=== PATIENT | male | born 1940 | race Caucasian/White ===

== ENCOUNTER 2021-07-11 16:38 | Inpatient (IN) | payer MEDICARE ==
[2021-07-11 20:00] VITALS: BP 138/78
--- NOTE | 2021-07-11 20:30 | NUR ---
Patient arrived in the unit via ambulance from [facility]. [facility] with minimal assist. AAOx 4. calm, denies any pain/discomforts, in no apparent distress. Routine admission care done. Plan of care initiated.
[2021-07-11] MEDS: REMEDY ESSENTIAL ZINC PASTE 113 GM TOP SCH (21:32)
[2021-07-11] MEDS ORDERED: ATOR40TA PO (21:57)
[2021-07-11] MEDS ORDERED: ANAS1TAB50 PO (21:57)
[2021-07-11] MEDS ORDERED: CALC-764 PO (21:57)
[2021-07-11] MEDS ORDERED: ASPI81TA31 PO (21:57)
[2021-07-11] MEDS ORDERED: BUPR-53 PO (21:57)
[2021-07-11] MEDS ORDERED: AMLO-212 PO (21:57)
[2021-07-11] MEDS ORDERED: OMEP40CA21 PO (22:09)
[2021-07-11] MEDS ORDERED: GABA600T12 PO (22:09)
[2021-07-11] MEDS ORDERED: LOSA25TA27 PO (22:09)
[2021-07-11] MEDS ORDERED: CYAN10006 IM (22:09)
[2021-07-11] MEDS ORDERED: GABA-532 PO (22:09)
[2021-07-11] MEDS ORDERED: ANASTROZOLE 1 MG TABLET PO SCH (23:45)
[2021-07-12 04:00] VITALS: BP 141/70
[2021-07-12] MEDS: PANTOPRAZOLE SODIUM 40 MG TABLET.DR PO SCH (06:36)
[2021-07-12 07:39] VITALS: BP 137/83
[2021-07-12] MEDS: ASPIRIN 81 MG TAB.CHEW PO SCH (08:39)
[2021-07-12] MEDS: LOSARTAN POTASSIUM 25 MG TABLET PO SCH (08:43)
[2021-07-12] MEDS: REMEDY ESSENTIAL ZINC PASTE 113 GM TOP SCH ×2 (08:44→21:01)
[2021-07-12] MEDS: buPROPion XL 150 MG TAB.SR.24H PO SCH (08:44)
[2021-07-12] MEDS: CALCIUM CARB/VITAMIN D 500MG-200UNITS TABLET PO SCH (08:44)
[2021-07-12] MEDS ORDERED: AMLODIPINE 5 MG TABLET PO SCH (09:00)
[2021-07-12 15:07] VITALS: BP 118/76
--- NOTE | 2021-07-12 18:06 | NUR ---
PT remain AAOx 4. calm, pleasant during the shift, denies any pain/discomforts up with PT ambulating, in no apparent distress. safety measures in place bed in low position , call light and all need it items within reach care done.
[2021-07-12 20:00] VITALS: BP 123/78
[2021-07-12] MEDS: ATORVASTATIN 40 MG TABLET PO SCH (20:58)
[2021-07-12] MEDS ORDERED: GABAPENTIN 300 MG CAPSULE PO SCH (21:00)
[2021-07-12] MEDS ORDERED: GABAPENTIN 100 MG CAPSULE PO SCH (21:00)
[2021-07-12] MEDS: ZOLPIDEM 5 MG TABLET PO PRN (23:14)
[2021-07-13 04:00] VITALS: BP 130/72
[2021-07-13] MEDS: PANTOPRAZOLE SODIUM 40 MG TABLET.DR PO SCH (06:16)
[2021-07-13 07:33] VITALS: BP 135/86
[2021-07-13] MEDS: CALCIUM CARB/VITAMIN D 500MG-200UNITS TABLET PO SCH (09:03)
[2021-07-13] MEDS: LOSARTAN POTASSIUM 25 MG TABLET PO SCH (09:03)
[2021-07-13] MEDS: ASPIRIN 81 MG TAB.CHEW PO SCH (09:03)
[2021-07-13] MEDS: REMEDY ESSENTIAL ZINC PASTE 113 GM TOP SCH ×2 (09:04→20:57)
[2021-07-13] MEDS: buPROPion XL 150 MG TAB.SR.24H PO SCH (09:04)
--- NOTE | 2021-07-13 10:00 | NUR ---
Received patient resting in bed. AAO x4 calmed at RA , respirations even and unlabored . Seen by PT and OT had a shower today Tolerated well. UP ambulating with FWW All needs attended. Will continue to monitor patient. No complaints of pain during therapy. safety measures in place bed in low position call light and all most needed items at reach
[2021-07-13 15:28] VITALS: BP 112/85
--- NOTE | 2021-07-13 19:30 | NUR ---
Received patient on bed, alert no shortness of breath noted. No complaint of pain noted.
[2021-07-13 20:00] VITALS: BP 118/71
[2021-07-13] MEDS: AMLODIPINE 5 MG TABLET PO SCH (20:57)
[2021-07-13] MEDS: ATORVASTATIN 40 MG TABLET PO SCH (20:57)
[2021-07-13] MEDS: ZOLPIDEM 5 MG TABLET PO PRN (21:02)
--- NOTE | 2021-07-13 21:02 | NUR ---
requested for regan for insomnia, given. Patient asleep after 1 hr and 30 minutes of administration.
[2021-07-14 04:00] VITALS: BP 140/68
[2021-07-14] MEDS: PANTOPRAZOLE SODIUM 40 MG TABLET.DR PO SCH (05:52)
--- NOTE | 2021-07-14 06:32 | NUR ---
Patient slept well, able to use the urinal when voiding, Left on bed in fair condition.
[2021-07-14 08:00] VITALS: BP 150/85
[2021-07-14] MEDS: ASPIRIN 81 MG TAB.CHEW PO SCH (08:43)
[2021-07-14] MEDS: buPROPion XL 150 MG TAB.SR.24H PO SCH (08:43)
[2021-07-14] MEDS: LOSARTAN POTASSIUM 25 MG TABLET PO SCH (08:44)
[2021-07-14] MEDS: CALCIUM CARB/VITAMIN D 500MG-200UNITS TABLET PO SCH (08:44)
[2021-07-14] MEDS: REMEDY ESSENTIAL ZINC PASTE 113 GM TOP SCH ×2 (08:45→20:57)
--- NOTE | 2021-07-14 09:00 | NUR ---
Received patient sitting in bed. AAO x4 calmed at RA 02 sat 97% , respirations even and unlabored . UP with PT ambulating with FWW All needs attended. Will continue to monitor patient. No complaints of pain during therapy. safety measures in place bed in low position call light and all most needed items at reach
--- NOTE | 2021-07-14 15:45 | NUR ---
INDIVIDUALIZED PLAN OF CARE
[2021-07-14 16:28] VITALS: BP 115/71
[2021-07-14 20:15] VITALS: BP 133/79
[2021-07-14] MEDS: ATORVASTATIN 40 MG TABLET PO SCH (20:56)
[2021-07-14] MEDS: ZOLPIDEM 5 MG TABLET PO PRN (20:57)
[2021-07-14] MEDS: AMLODIPINE 5 MG TABLET PO SCH (20:57)
[2021-07-15 04:18] VITALS: BP 123/58
[2021-07-15] MEDS: PANTOPRAZOLE SODIUM 40 MG TABLET.DR PO SCH (06:22)
[2021-07-15] MEDS: CALCIUM CARB/VITAMIN D 500MG-200UNITS TABLET PO SCH (09:16)
[2021-07-15] MEDS: ASPIRIN 81 MG TAB.CHEW PO SCH (09:16)
[2021-07-15] MEDS: buPROPion XL 150 MG TAB.SR.24H PO SCH (09:16)
[2021-07-15] MEDS: LOSARTAN POTASSIUM 25 MG TABLET PO SCH (09:23)
[2021-07-15] MEDS: REMEDY ESSENTIAL ZINC PASTE 113 GM TOP SCH ×2 (09:24→20:02)
[2021-07-15 09:40] VITALS: BP 146/84
[2021-07-15 16:25] VITALS: BP 107/65
[2021-07-15] MEDS: ATORVASTATIN 40 MG TABLET PO SCH (20:01)
[2021-07-15] MEDS: AMLODIPINE 5 MG TABLET PO SCH (20:01)
[2021-07-15] MEDS: ZOLPIDEM 5 MG TABLET PO PRN (20:07)
[2021-07-15 20:34] VITALS: BP 123/67
[2021-07-16 04:49] VITALS: BP 116/52
[2021-07-16] MEDS: PANTOPRAZOLE SODIUM 40 MG TABLET.DR PO SCH (06:29)
[2021-07-16 08:00] VITALS: BP 129/77
[2021-07-16] MEDS: ASPIRIN 81 MG TAB.CHEW PO SCH (08:29)
[2021-07-16] MEDS: CALCIUM CARB/VITAMIN D 500MG-200UNITS TABLET PO SCH (08:29)
[2021-07-16] MEDS: buPROPion XL 150 MG TAB.SR.24H PO SCH (08:30)
[2021-07-16] MEDS: LOSARTAN POTASSIUM 25 MG TABLET PO SCH (08:30)
[2021-07-16] MEDS: REMEDY ESSENTIAL ZINC PASTE 113 GM TOP SCH ×2 (08:30→20:27)
[2021-07-16 16:00] VITALS: BP 111/65
--- NOTE | 2021-07-16 18:55 | NUR ---
The patient remained stable during the shift. Denies discomfort. no distress identified. all due meds given. all needs attended. Kept call light within reach. Safety measures maintained. no concerns identified. will endorse to the next shift for continuity of care.
[2021-07-16 20:15] VITALS: BP 131/59
[2021-07-16] MEDS: ATORVASTATIN 40 MG TABLET PO SCH (20:26)
[2021-07-16] MEDS: AMLODIPINE 5 MG TABLET PO SCH (20:26)
[2021-07-16] MEDS: ZOLPIDEM 5 MG TABLET PO PRN (20:27)
[2021-07-17 04:18] VITALS: BP 148/87
[2021-07-17] MEDS: PANTOPRAZOLE SODIUM 40 MG TABLET.DR PO SCH (06:14)
[2021-07-17 08:00] VITALS: BP 149/87
[2021-07-17] MEDS: ASPIRIN 81 MG TAB.CHEW PO SCH (08:26)
[2021-07-17] MEDS: buPROPion XL 150 MG TAB.SR.24H PO SCH (08:26)
[2021-07-17] MEDS: LOSARTAN POTASSIUM 25 MG TABLET PO SCH (08:27)
[2021-07-17] MEDS: CALCIUM CARB/VITAMIN D 500MG-200UNITS TABLET PO SCH (08:27)
[2021-07-17] MEDS: REMEDY ESSENTIAL ZINC PASTE 113 GM TOP SCH ×2 (08:28→20:18)
[2021-07-17 16:00] VITALS: BP 112/76
--- NOTE | 2021-07-17 18:26 | NUR ---
The patient remained stable. no distress identified. No pain noted. Denies discomfort. all due meds given. all needs attended. Kept call light within reach. Safety measures maintained. no concerns noted. will endorse to the next shift for continuity of care.
[2021-07-17 20:12] VITALS: BP 114/66
[2021-07-17] MEDS: ATORVASTATIN 40 MG TABLET PO SCH (20:18)
[2021-07-17] MEDS: AMLODIPINE 5 MG TABLET PO SCH (20:18)
[2021-07-18 04:00] VITALS: BP 121/59
[2021-07-18] MEDS: PANTOPRAZOLE SODIUM 40 MG TABLET.DR PO SCH (06:21)
[2021-07-18 06:45] LABS: HEMATOCRIT 42.9 % (36.7-47.1); MEAN CORPUSCULAR HEMOGLOBIN 31.6 uug (23.8-33.4); MEAN CORPUSCULAR VOLUME 91.4 fL (73.0-96.2); PLATELET COUNT (AUTO) 145 K/uL (152-348)
[2021-07-18 07:56] LABS: CREATININE 0.7 mg/dL (0.6-1.3); MAGNESIUM 2.3 mg/dL (1.8-2.4); PHOSPHOROUS 4.2 mg/dL (2.5-4.9); POTASSIUM 4.1 mmol/L (3.5-5.1); TOTAL PROTEIN, SERUM 6.8 g/dL (6.4-8.2)
[2021-07-18 08:00] VITALS: BP 152/85
[2021-07-18 08:19] LABS: THYROID STIMULATING HORMONE 1.641 mIU/mL (0.358-3.740)
[2021-07-18] MEDS: ASPIRIN 81 MG TAB.CHEW PO SCH (08:25)
[2021-07-18] MEDS: LOSARTAN POTASSIUM 25 MG TABLET PO SCH (08:25)
[2021-07-18] MEDS: REMEDY ESSENTIAL ZINC PASTE 113 GM TOP SCH ×2 (08:26→21:22)
[2021-07-18] MEDS: buPROPion XL 150 MG TAB.SR.24H PO SCH (08:26)
[2021-07-18] MEDS: CALCIUM CARB/VITAMIN D 500MG-200UNITS TABLET PO SCH (08:26)
[2021-07-18] MEDS ORDERED: ACETAMINOPHEN 325 MG TABLET PO PRN (09:30)
--- NOTE | 2021-07-18 15:16 | NUR ---
INTERDISCIPLINARY TEAM CONFERENCE
[2021-07-18 16:27] VITALS: BP 139/72
--- NOTE | 2021-07-18 18:25 | NUR ---
Patient remained stable. Frequent visual checks done. safety measures maintained. all due meds given. all needs attended. kept call light within reach. no other concern identified. will endorse to the next shift for continuity of care.
--- NOTE | 2021-07-18 19:00 | NUR ---
Received patient on bed, alert, no shortness of breath noted,. No complaint of pain.
[2021-07-18 20:00] VITALS: BP 110/57
[2021-07-18] MEDS: ATORVASTATIN 40 MG TABLET PO SCH (21:20)
[2021-07-18] MEDS: ZOLPIDEM 5 MG TABLET PO PRN (21:21)
[2021-07-18] MEDS: AMLODIPINE 5 MG TABLET PO SCH (21:22)
[2021-07-19 04:32] VITALS: BP 126/69
[2021-07-19] MEDS: PANTOPRAZOLE SODIUM 40 MG TABLET.DR PO SCH (06:38)
--- NOTE | 2021-07-19 06:44 | NUR ---
Patient slept well, no complaint of pain or discomfort. For MRI abdomen and pelvis today with consent attached to chart. For continuity of care.
[2021-07-19 08:00] VITALS: BP 125/77
[2021-07-19] MEDS: CALCIUM CARB/VITAMIN D 500MG-200UNITS TABLET PO SCH (08:37)
[2021-07-19] MEDS: buPROPion XL 150 MG TAB.SR.24H PO SCH (08:38)
[2021-07-19] MEDS: ASPIRIN 81 MG TAB.CHEW PO SCH (08:40)
[2021-07-19] MEDS: REMEDY ESSENTIAL ZINC PASTE 113 GM TOP SCH ×2 (08:40→20:43)
[2021-07-19] MEDS: LOSARTAN POTASSIUM 25 MG TABLET PO SCH (08:40)
[2021-07-19 16:00] VITALS: BP 120/70
[2021-07-19 20:11] VITALS: BP 143/80
[2021-07-19 20:30] VITALS: BP 143/80
[2021-07-19] MEDS: ATORVASTATIN 40 MG TABLET PO SCH (20:42)
[2021-07-19] MEDS: AMLODIPINE 5 MG TABLET PO SCH (20:43)
[2021-07-19] MEDS: ZOLPIDEM 5 MG TABLET PO PRN (20:49)
[2021-07-20 04:00] VITALS: BP 108/58
[2021-07-20] MEDS: PANTOPRAZOLE SODIUM 40 MG TABLET.DR PO SCH (06:04)
--- NOTE | 2021-07-20 07:10 | NUR ---
No acute changes, slept throughout the night. All needs attended. Will endorsed to next shift.
[2021-07-20 07:48] VITALS: BP 133/75
[2021-07-20] MEDS: buPROPion XL 150 MG TAB.SR.24H PO SCH (09:32)
[2021-07-20] MEDS: ASPIRIN 81 MG TAB.CHEW PO SCH (09:32)
[2021-07-20] MEDS: REMEDY ESSENTIAL ZINC PASTE 113 GM TOP SCH (09:32)
[2021-07-20] MEDS: CALCIUM CARB/VITAMIN D 500MG-200UNITS TABLET PO SCH (09:32)
[2021-07-20] MEDS: LOSARTAN POTASSIUM 25 MG TABLET PO SCH (09:32)
[2021-07-20 15:49] VITALS: BP 128/77
== END 2021-07-20 14:00 | disposition home health service (06) | DRG 948 ==
PROVIDERS: ADMIT Physical Medicine & Rehabilitation Pain Medicine; ATTEND Physical Medicine & Rehabilitation Pain Medicine
DX: R53.1 Weakness (principal); K50.90 Crohn's disease, unspecified, without complications; I69.354 Hemiplegia and hemiparesis following cerebral infarction affecting left non-dominant side; E78.5 Hyperlipidemia, unspecified; G90.8 Other disorders of autonomic nervous system; I10 Essential (primary) hypertension; I25.10 Atherosclerotic heart disease of native coronary artery without angina pectoris; I25.2 Old myocardial infarction; Z95.5 Presence of coronary angioplasty implant and graft; K21.9 Gastro-esophageal reflux disease without esophagitis; I69.398 Other sequelae of cerebral infarction; H53.47 Heteronymous bilateral field defects; N40.0 Benign prostatic hyperplasia without lower urinary tract symptoms; Z88.0 Allergy status to penicillin; R29.6 Repeated falls; Z91.81 History of falling; Z85.828 Personal history of other malignant neoplasm of skin; L80 Vitiligo; S40.012D Contusion of left shoulder, subsequent encounter; W19.XXXD Unspecified fall, subsequent encounter
CPT/HCPCS: 36415; 83735; 84100; 84443; 85025; 97161; 97535-GO-CO; A4663

== ENCOUNTER 2022-08-20 14:45 | Inpatient (IN) | payer MEDICARE ==
[~2022-08-20] VITALS: Ht 182.9 cm; Wt 78.0 kg
[~2022-08-20 14:45] MED LIST: AMLO-212 PO; ASPI81TA31 PO; ATOR40TA PO; BUPR-53 PO; CALC-764 PO; CYAN10006 IM; LOSA25TA27 PO; OMEP40CA21 PO
[2022-08-20] MEDS ORDERED: IV NORMAL SALINE 1000 ML BAG IV ONE (15:15)
[2022-08-20 15:41] LABS: HEMATOCRIT 42.5 % (36.7-47.1); MEAN CORPUSCULAR HEMOGLOBIN 30.2 uug (23.8-33.4); MEAN CORPUSCULAR VOLUME 88.9 fL (73.0-96.2); PLATELET COUNT (AUTO) 189 K/uL (152-348)
[2022-08-20 15:42] LABS: *CLARITY,URINE CLEAR (CLEAR); *COLOR,URINE YELLOW (YELLOW); PH,URINE 5.5 (5.0-8.0)
[2022-08-20 15:43] LABS: UGLUCOSE NEGATIVE (NEGATIVE)
[2022-08-20 15:45] LABS: *BLOOD, URINE TRACE (NEGATIVE)
[2022-08-20 15:46] LABS: *BILIRUBIN,URIN NEGATIVE (NEGATIVE); *KETONES,URINE NEGATIVE (NEGATIVE); *UROBILINOGEN,URINE 0.2 E.U./dl (NORMAL)
[2022-08-20 15:47] LABS: LEUKOCYTE ESTERASE ,URINE NEGATIVE (NEGATIVE); NITRITE, URINE NEGATIVE (NEGATIVE)
[2022-08-20 16:21] LABS: CARBON DIOXIDE 25 mmol/L (21-32); CHLORIDE 104 mmol/L (98-107); CREATININE 0.8 mg/dL (0.6-1.3); GLUCOSE 112 mg/dL (74-106); POTASSIUM 3.9 mmol/L (3.5-5.1); UREA NITROGEN, BLOOD 23 mg/dL (7-18)
[2022-08-20 16:29] LABS: WBC,URINE 0-3 /HPF (0-3)
[2022-08-20 16:30] LABS: ALANINE AMINOTRANSFERASE 36 U/L (16-63); ALKALINE PHOSPHATASE 54 U/L (50-136); ASPARTATE AMINOTRANSFERASE 22 U/L (15-37); BILIRUBIN,DIRECT 0.2 mg/dL (0.0-0.2); BILIRUBIN,TOTAL 0.7 mg/dL (0.2-1.0)
[2022-08-20 16:31] LABS: THYROID STIMULATING HORMONE 1.014 mIU/mL (0.358-3.740)
[2022-08-20] MEDS ORDERED: DOCU-265 PO (16:33)
[2022-08-20] MEDS ORDERED: ACET-73 PO (16:33)
[2022-08-20] MEDS ORDERED: FAMO-132 PO (16:33)
[2022-08-20] MEDS ORDERED: SERT25TA PO (16:33)
[2022-08-20] MEDS ORDERED: LISI10TA29 PO (16:33)
[2022-08-20 16:42] LABS: ETHANOL < 3 MG/DL (0-0)
[2022-08-20 17:29] LABS: *AMPHETAMINE, URINE NEGATIVE (NEGATIVE); *CANNABINOID, URINE NEGATIVE (NEGATIVE); *COCCAINE, URINE NEGATIVE (NEGATIVE); *PHENCYCLIDINE SCREEN,URINE NEGATIVE (NEGATIVE)
--- NOTE | 2022-08-20 18:26 | NUR ---
Patient discharged to home in stable condition. Written and verbal after care instructions given. Patient verbalizes understanding of instructions. Stressed follow up or return to ER for worsening s/s.
--- NOTE | 2022-08-20 19:23 | NUR ---
Received report from Austin CAMACHO.
[2022-08-20 20:00] VITALS: BP 164/80
--- NOTE | 2022-08-20 20:00 | NUR ---
Admitted a 81 years old male with Dx of AMS and A. Fib. Patient AAOx1-2. Able to answer some question but with confusion noted. Able to follow some directions. In no apparent distress. Denies any pain or SOB when asked. Appears comfortable. A. Fib on tele with HR of 65/min. IV site on right FA intact and patent. 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 Routine admission care done. Plan of care initiated. Safety measure initiated and call light within reached. Will continue to monitor.
--- NOTE | 2022-08-20 20:00 | NUR ---
Patient was transferred upstairs via gurney. JANICE Villagomez made aware of patients arrival.
[2022-08-20] MEDS ORDERED: TEMAZEPAM 15 MG CAPSULE PO PRN (20:30)
[2022-08-20] MEDS ORDERED: hydrALAZINE HCL 25 MG TABLET PO PRN (20:30)
[2022-08-20] MEDS ORDERED: ONDANSETRON 4 MG/2 ML VIAL IV PRN (20:30)
[2022-08-20] MEDS ORDERED: ACETAMINOPHEN 325 MG TABLET PO PRN (20:30)
[2022-08-20 22:20] VITALS: BP 165/77
--- NOTE | 2022-08-21 00:24 | NUR ---
Restoril 15mg PO ineffective. Patient still awake and very anxious/agitated and combative. Grabbing staff and ripped off his telemetry wiring and box. Also trying to get out of bed. very confused. Informed DALTON Barnes and obtain order to give patient Ativan 1MG IVP x1. Order noted and will carry out.
[2022-08-21 00:28] VITALS: BP 119/85
[2022-08-21] MEDS ORDERED: LORAZEPAM 2 MG/1 ML VIAL IV ONE (00:30)
[2022-08-21 04:36] VITALS: BP 137/82
--- NOTE | 2022-08-21 05:21 | NUR ---
Asleep at this time. Ativan 1mg IVP effective for agitation. Remains A. fib, occasional V paced on tele with HR of 58/min. IV site on right FA intact and patent. Kept clean and dry. Safety measure maintained and call light within reached.
[2022-08-21 08:07] LABS: HEMATOCRIT 42.6 % (36.7-47.1); MEAN CORPUSCULAR HEMOGLOBIN 30.9 uug (23.8-33.4); MEAN CORPUSCULAR VOLUME 89.2 fL (73.0-96.2); PLATELET COUNT (AUTO) 172 K/uL (152-348)
[2022-08-21 08:20] LABS: BILIRUBIN,TOTAL 1.1 mg/dL (0.2-1.0); CREATININE 0.9 mg/dL (0.6-1.3); MAGNESIUM 1.7 mg/dL (1.8-2.4); PHOSPHOROUS 3.3 mg/dL (2.5-4.9); POTASSIUM 3.7 mmol/L (3.5-5.1); TOTAL PROTEIN, SERUM 6.7 g/dL (6.4-8.2)
[2022-08-21] MEDS: LISINOPRIL 10 MG TABLET PO SCH (09:00)
[2022-08-21 09:27] VITALS: BP 97/73
[2022-08-21] MEDS: SERTRALINE HCL 50 MG TABLET PO SCH (09:31)
[2022-08-21] MEDS: ASPIRIN 81 MG TAB.CHEW PO SCH (09:31)
[2022-08-21] MEDS: FAMOTIDINE 20 MG TABLET PO SCH ×2 (09:31→18:04)
[2022-08-21] MEDS: DOCUSATE SODIUM 100 MG CAPSULE PO SCH ×2 (09:32→18:04)
[2022-08-21] MEDS ORDERED: MAGNESIUM OXIDE 400 MG TABLET PO ONE (11:00)
[2022-08-21 12:00] VITALS: BP 146/87
[2022-08-21 16:00] VITALS: BP 113/69
--- NOTE | 2022-08-21 19:20 | NUR ---
Received patient already getting very anxious and agitated, getting up and walking unsteadily with a walker, becoming aggressive with the staff when trying to redirect. Informed Dr. Gilbert and obtain order for Ativan 1mg IVP every 6 hours PRN for anxiety/agitation. Order noted and will carry out.
[2022-08-21] MEDS: LORAZEPAM 2 MG/1 ML VIAL IV PRN (19:32)
[2022-08-21 20:00] VITALS: BP 128/86
--- NOTE | 2022-08-21 20:30 | NUR ---
Noted patient pulled out his IV on right FA. Place new IV on left upper arm #20G.
[2022-08-22] VITALS: BP 134/72
[2022-08-22 04:00] VITALS: BP 150/85
--- NOTE | 2022-08-22 05:38 | NUR ---
Ativan 1mg IVP effective for anxiety. Patient calm down after. In no acute distress. V Paced on tele with underlying A. fib, HR of 55/min. IV site on left upper arm remains intact and patent. Safety measure maintained and call light within reached.
--- NOTE | 2022-08-22 07:02 | NUR ---
WOUND CARE CONSULT: PT SLEEPING SOUNDLY AT THIS TIME. REVIEWED CHART, NURSING DOCUMENTATION AND PHOTOS WHICH INDICATE SACRAL SCARRING WITH OPEN AREA, PRESENT ON ADMISSION. DISCUSSED SKIN PROTECTION RECOMMENDATIONS WITH NURSING STAFF. MD IN AGREEMENT WITH PLAN OF CARE.
[2022-08-22 07:48] LABS: CARBON DIOXIDE 27 mmol/L (21-32); CHLORIDE 103 mmol/L (98-107); CREATININE 0.8 mg/dL (0.6-1.3); GLUCOSE 102 mg/dL (74-106); MAGNESIUM 1.7 mg/dL (1.8-2.4); POTASSIUM 3.8 mmol/L (3.5-5.1); UREA NITROGEN, BLOOD 19 mg/dL (7-18)
[2022-08-22] MEDS: FAMOTIDINE 20 MG TABLET PO SCH ×2 (08:18→16:03)
[2022-08-22] MEDS: LISINOPRIL 10 MG TABLET PO SCH (08:18)
[2022-08-22] MEDS: SERTRALINE HCL 50 MG TABLET PO SCH (08:18)
[2022-08-22] MEDS: DOCUSATE SODIUM 100 MG CAPSULE PO SCH ×2 (08:18→16:03)
[2022-08-22] MEDS: ASPIRIN 81 MG TAB.CHEW PO SCH (08:18)
[2022-08-22] MEDS ORDERED: MAGNESIUM SULFATE/D5W 100 ML IV SCH (08:30)
[2022-08-22 11:33] VITALS: BP 95/50
[2022-08-22 15:39] VITALS: BP 116/65
[2022-08-22] MEDS: LORAZEPAM 2 MG/1 ML VIAL IV PRN (16:45)
--- NOTE | 2022-08-22 17:52 | NUR ---
pt is bleeding in the urine and c/o pain noted pt is very restless and confused at this time getting out of bed and hitting the staff md notified new orders received noted and carried out
[2022-08-22 19:06] LABS: *BILIRUBIN,URIN NEGATIVE (NEGATIVE); *BLOOD, URINE 3+ (NEGATIVE); *CLARITY,URINE CLOUDY (CLEAR); *COLOR,URINE RED (YELLOW); *KETONES,URINE NEGATIVE (NEGATIVE); LEUKOCYTE ESTERASE ,URINE 1+ (NEGATIVE); NITRITE, URINE NEGATIVE (NEGATIVE); PH,URINE 6.5 (5.0-8.0); UGLUCOSE NEGATIVE (NEGATIVE)
[2022-08-22 20:01] VITALS: BP 149/82
[2022-08-22] MEDS ORDERED: CEFTRIAXONE /D5W 50ML IVPB **ER PYXIS IV ONE (20:21)
[2022-08-22] MEDS ORDERED: CEFTRIAXONE 1 G in IV DEXTROSE 5% 50 ML IV SCH (21:00)
[2022-08-22 22:03] LABS: BACTERIA,URINE FEW /HPF (NONE SEEN); RBC,URINE TNTC /HPF (0-3); SQUAMOUS EPITHELIAL CELL,UR FEW /HPF (NONE SEEN); WBC,URINE TNTC /HPF (0-3)
[2022-08-23] MEDS: LORAZEPAM 2 MG/1 ML VIAL IV PRN ×2 (01:00→07:03)
[2022-08-23 04:00] VITALS: BP 145/91
--- NOTE | 2022-08-23 06:30 | NUR ---
Patient is AAOX1 very confused, no adverse effect observed. He has been irritable and agitated for the night. Will continue to monitor patient for safety.
[2022-08-23] MEDS: DOCUSATE SODIUM 100 MG CAPSULE PO SCH (08:26)
[2022-08-23] MEDS: SERTRALINE HCL 50 MG TABLET PO SCH (08:26)
[2022-08-23] MEDS: FAMOTIDINE 20 MG TABLET PO SCH (08:26)
[2022-08-23] MEDS: LISINOPRIL 10 MG TABLET PO SCH (08:26)
[2022-08-23 11:15] VITALS: BP 134/78
[2022-08-23] MEDS ORDERED: TEMA15CA PO (11:54)
[2022-08-23] MEDS ORDERED: MULT-1045 PO (11:54)
[2022-08-23] MEDS ORDERED: NITR100C11 PO (11:54)
[2022-08-23] MEDS ORDERED: LORA0.5T48 PO (11:54)
--- NOTE | 2022-08-23 14:21 | NUR ---
dc orders received noted and carried out,dc heplock per md orders,rn report given to the intermediate ,pt left the facility via ambulances in stable condition
== END 2022-08-23 14:30 | DRG 871 ==
LOC: ER 14:45 → MEDSURG3 19:25 → TELE3 20:30 → MEDSURG3 08-22 06:35
PROVIDERS: ADMIT Internal Medicine; ATTEND Internal Medicine
DX: A41.9 Sepsis, unspecified organism (principal); G92.8 Other toxic encephalopathy; N39.0 Urinary tract infection, site not specified; I48.20 Chronic atrial fibrillation, unspecified; F05 Delirium due to known physiological condition; Z95.0 Presence of cardiac pacemaker; R29.6 Repeated falls; R62.7 Adult failure to thrive; R31.9 Hematuria, unspecified; I69.398 Other sequelae of cerebral infarction; G93.89 Other specified disorders of brain; Z20.822 Contact with and (suspected) exposure to COVID-19; K21.9 Gastro-esophageal reflux disease without esophagitis; Z91.81 History of falling; Z79.82 Long term (current) use of aspirin; L90.5 Scar conditions and fibrosis of skin; F01.50 Vascular dementia, unspecified severity, without behavioral disturbance, psychotic disturbance, mood disturbance, and anxiety; E83.42 Hypomagnesemia; E78.5 Hyperlipidemia, unspecified; E86.0 Dehydration; I11.9 Hypertensive heart disease without heart failure; I25.10 Atherosclerotic heart disease of native coronary artery without angina pectoris; I70.0 Atherosclerosis of aorta; F32.A Depression, unspecified; Z98.61 Coronary angioplasty status; M19.90 Unspecified osteoarthritis, unspecified site; Z79.899 Other long term (current) drug therapy; Z88.0 Allergy status to penicillin; Z91.013 Allergy to seafood
CPT/HCPCS: 36415; 70450; 71045; 82652; 83735; 84100; 84443; 84484; 85025; 85730; 93005; 93307; A4663; A6213; C1758; G0378; G0480; J0696; J2060; J3475; J7040